=== PATIENT | female | born 1960 | race Two or more races ===

== ENCOUNTER 2017-06-04 08:22 | Day surgery (SDC) | payer OTHER ==
[2017-06-04] MEDS ORDERED: PROPOFOL 20 ML ONE ×2 (08:43)
[2017-06-04 09:28] VITALS: TEMP 97.8
[2017-06-04 10:17] VITALS: BP 133/97; PULSE 69
--- NOTE | 2017-06-05 12:46 | PATH ---
Surgical Pathology Report Patient Name: LONG GUERRA [facility]. Rec. #: [id number] /Age/Gender: 1960 (Age: 57) / F Account: [id number] Location: U-ENDOSCOPY Taken: 06/04/2017 Received: 06/04/2017 Reported: 06/05/2017 Physicians: Bud Olguin M.D. Specimen(s) Received A: BX DUODENUM B: BX ANTRUM C: BX BODY D: BX RIGHT COLON POLYP Clinical History Preoperative diagnosis: Screening, gastric metaplasia surveillance Postoperative diagnosis: Atrophic gastritis, right colon polyp Final Diagnosis A. DUODENUM, SECOND PORTION AND BULB, BIOPSY: DUODENAL MUCOSA WITHOUT SIGNIFICANT PATHOLOGIC FINDINGS. B. STOMACH, ANTRUM, BIOPSY: GASTRIC ANTRAL MUCOSA WITH MILD CHRONIC GASTRITIS. IMMUNOHISTOCHEMICAL STAIN FOR H. PYLORI IS NEGATIVE. C. STOMACH, BODY, BIOPSY: GASTRIC BODY MUCOSA WITH MODERATE CHRONIC GASTRITIS. IMMUNOHISTOCHEMICAL STAIN FOR H. PYLORI IS NEGATIVE. D. COLON, RIGHT, POLYP, BIOPSY: POLYPOID COLONIC MUCOSA WITH SMALL LYMPHOID AGGREGATE. Electronically Signed Batsheva Lucas M.D. Gross Description A. Received in formalin, labeled "biopsy second portion of duodenum/bulb" are 3 mario, irregular portions of soft tissue ranging from 0.3-0.4 cm. in greatest dimension. The specimens are submitted in toto in one cassette. B. Received in formalin, labeled "biopsy antrum" are 3 mario, irregular portions of soft tissue ranging from 0.2-0.6 cm. in greatest dimension. The specimens are submitted in toto in one cassette. C. Received in formalin, labeled "biopsy gastric body" are 6 mario, irregular portions of soft tissue ranging from 0.2-0.5 cm. in greatest dimension. The specimens are submitted in toto in one cassette. D. Received in formalin, labeled "biopsy right colon polyp" are 4 mario, irregular portions of soft tissue ranging from 0.1-0.2 cm. in greatest dimension. The specimens are submitted in toto in one cassette. 06/04/2017 saudi06/04/2017
== END 2017-06-04 10:19 | disposition home or self-care (01) ==
LOC: JASU-ENDO 08:22
PROVIDERS: ATTEND Internal Medicine Gastroenterology
PROC: 0DB98ZX Excision of Duodenum, Via Natural or Artificial Opening Endoscopic, Diagnostic (ICD-10-PCS; 2017-06-04)
PROC: 0DB68ZX Excision of Stomach, Via Natural or Artificial Opening Endoscopic, Diagnostic (ICD-10-PCS; 2017-06-04)
PROC: 0DBK8ZX Excision of Ascending Colon, Via Natural or Artificial Opening Endoscopic, Diagnostic (ICD-10-PCS; principal; 2017-06-04 09:00)
DX: Z12.11 Encounter for screening for malignant neoplasm of colon (principal); D12.2 Benign neoplasm of ascending colon; K29.50 Unspecified chronic gastritis without bleeding
CPT/HCPCS: 88305-TC; 88342-TC